=== PATIENT | male | born 1960 | race African-American/Black ===

== ENCOUNTER 2017-06-28 23:36 | Emergency (ER) | payer OTHER ==
[2017-06-29] MEDS: ASPIRIN 325 MG TAB PO (00:12)
[2017-06-29] MEDS: SOD CHLORIDE 0.9% 500 ML IV (00:24)
[2017-06-29] MEDS: METHYLPREDNISOLONE 125 MG INJ IV (00:24)
[2017-06-29] MEDS: DILTIAZEM 50 MG INJ IV ×3 (00:25→03:56)
[2017-06-29] MEDS: DIPHENHYDRAMINE 50 MG INJ IV (00:25)
[2017-06-29 00:50] LABS: ADD MAN DIFF? NO
[2017-06-29 00:52] LABS: EOSINOPHILS % 0.6 % (0.0-7.0); HEMATOCRIT 44.3 % (42.0-52.0); LYMPHOCYTES % 19.9 % (15.0-51.0); MEAN CORPUSCULAR HEMOGLOBIN 25.7 pg (29.0-33.0); MEAN CORPUSCULAR HGB CONC 33.9 g/dl (32.0-37.0); MEAN CORPUSCULAR VOLUME 75.9 fl (82.0-101.0); MEAN PLATELET VOLUME 10.8 fl (7.4-10.4); MONOCYTE # 0.4 10^3/ul (0.3-0.9); MONOCYTES % 8.4 % (0.0-11.0); NEUTROPHIL # 3.6 10^3/ul (1.6-7.5); NEUTROPHILS % 70.7 % (39.0-77.0); PLATELET COUNT 154 10^3/UL (140-415); RED BLOOD COUNT 5.84 10^6/ul (4.70-6.10); RED CELL DISTRIBUTION WIDTH 19.3 % (11.5-14.5)
[2017-06-29] MEDS: NITROGLYCERIN (SL) 0.4 MG TAB SL (00:58)
[2017-06-29] MEDS: hydrOXYzine PAMOATE 25 MG CAP PO (01:10)
[2017-06-29 01:21] LABS: DIGOXIN < 0.4 ng/ml (1.0-2.0)
[2017-06-29 01:27] LABS: INR 0.97; PARTIAL THROMBOPLASTIN TIME 29.1 Sec (25.0-35.0)
[2017-06-29] MEDS: METOPROLOL 5 MG INJ IV (02:05)
[2017-06-29 02:14] LABS: ANION GAP 21 (8-16); BLOOD UREA NITROGEN 13 mg/dl (7-20); CALCIUM 9.4 mg/dl (8.4-10.2); CARBON DIOXIDE 23 mmol/L (21-31); CHLORIDE 100 mmol/L (97-110); CREATININE 1.07 mg/dl (0.61-1.24); GLUCOSE 88 mg/dl (70-220); POTASSIUM 4.5 mmol/L (3.5-5.1); SODIUM 139 mmol/L (135-144)
[2017-06-29 02:26] LABS: B-TYPE NATRIURETIC PEPTIDE 1210 PG/ML (0-125); TROPONIN-I 0.018 ng/ml (0.00-0.12)
[2017-06-29] MEDS: ONDANSETRON 4 MG INJ IV (02:44)
[2017-06-29] MEDS: DILTIAZEM-D5W 125MG/125ML DRIP 125 ML IV (03:56)
== END 2017-06-29 06:05 | disposition short-term general hospital (02) ==
LOC: E/R 23:36
DX: I48.0 Paroxysmal atrial fibrillation (principal); Z72.89 Other problems related to lifestyle
CPT/HCPCS: 71045; 80048; 80162; 83880; 84484; 85025; 85610; 85730; 93005; 96365; 96366; 96375; 96376; 99291-25